=== PATIENT | male | born 1960 | race Caucasian/White ===

== ENCOUNTER → 2016-10-24 | Outpatient (CLI) | payer OTHER ==
--- NOTE | 2016-10-25 15:44 | EST ---
Referral Reason:R07.9 chest pain MEASUREMENTS -------- HEIGHT: 185.4 cm WEIGHT: 108.9 kg BP: 89/52 FINDINGS -------- Utilizing the standard Ferdinand protocol the patient was exercised for 11 minutes, 0 seconds, achieving a maximum heart rate of 145 , which is 138 % of predicted maximal heart rate. There was physiologic heart rate and blood pressure response to exercise. Max Heart Rate: 145 % of Max Predicted Heart Rate: 89 Rest Heart Rate: 65 Rest BP: 89/52 Max BP: 158/68 Mets Achieved: 12.1 The test was stopped because the target heart rate was achieved. This level of exercise represents a fair exercise tolerance for age. Sinus rhythm. In response to stress, the ECG showed no ST-T wave changes (see exercise report for details). LV size, wall thickness and systolic function are normal, with an EF of 60%. Echo images were acquired at peak stress which demonstrated appropriate augmentation of all left ventricular segments with slight decrease in cavity size. CONCLUSIONS -------- 1. This level of exercise represents a fair exercise tolerance for age. 2. Sinus rhythm. 3. In response to stress, the ECG showed no ST-T wave changes (see exercise report for details). 4. LV size, wall thickness and systolic function are normal, with an EF of 60%. 5. Echo images were acquired at peak stress which demonstrated appropriate augmentation of all left ventricular segments with slight decrease in cavity size. 6. No 2D echocardiographic evidence of inducible ischemia to achieved workload. RECEIVING ROOM CLERK: Rah Crespo RDCS MTDNirmal
== END ==
LOC: RADNMMAIN 09:50
PROVIDERS: ATTEND Family Medicine
DX: R07.9 Chest pain, unspecified (principal)
CPT/HCPCS: 93350; 93017; Q9957

== ENCOUNTER 2019-10-07 18:02 | Observation (INO) | payer OTHER ==
--- NOTE | 2019-10-07 19:31 | XR ---
EXAMINATION TYPE: XR chest 2V DATE OF EXAM: 10/07/2019 COMPARISON: NONE HISTORY: Short of breath TECHNIQUE: 2 views FINDINGS: Heart and mediastinum are normal. Lungs are clear. Diaphragm is normal. Bony thorax is inta ct. There is no pleural effusion. IMPRESSION: No active cardiopulmonary disease. Normal heart.
[2019-10-07 20:02] LABS: Basophils # (A) 0.1 k/uL (0-0.2); Basophils % (A) 1 %; Eosinophils # (A) 0.2 k/uL (0-0.7); Eosinophils % (A) 1 %; HCT 46.5 % (39.0-53.0); HGB 15.2 gm/dL (13.0-17.5); Lymphocytes # (A) 1.2 k/uL (1.0-4.8); Lymphocytes % (A) 10 %; MCH 30.8 pg (25.0-35.0); MCHC 32.7 g/dL (31.0-37.0); MCV 94.4 fL (80.0-100.0); Monocytes # (A) 0.6 k/uL (0-1.0); Monocytes % (A) 5 %; Neutrophils # (A) 9.5 k/uL (1.3-7.7); Neutrophils % (A) 82 %; Platelet Count 215 k/uL (150-450); RBC 4.92 m/uL (4.30-5.90); RDW 12.4 % (11.5-15.5); WBC 11.6 k/uL (3.8-10.6)
[2019-10-07 20:17] LABS: Albumin 4.5 g/dL (3.5-5.0); Calcium 9.3 mg/dL (8.4-10.2); Magnesium 2.6 mg/dL (1.6-2.3); Potassium 4.7 mmol/L (3.5-5.1); Total Bilirubin 0.8 mg/dL (0.2-1.3); Total Protein 7.4 g/dL (6.3-8.2)
[2019-10-07 20:18] LABS: Partial Thromboplastin Time 22.7 sec (22.0-30.0)
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
[2019-10-07] MEDS ORDERED: ASPIRIN 325 MG TAB PO STA (20:43)
[2019-10-08] MEDS ORDERED: HEPARIN SODIUM,PORCINE 5,000 UNIT/ML 1 ML VIAL IV ONE (00:31)
[2019-10-08] MEDS ORDERED: HEPARIN SODIUM,PORCINE 5,000 UNIT/ML 1 ML VIAL IV PRN (00:31)
[2019-10-08] MEDS ORDERED: NALOXONE 0.4 MG/ML 1 ML VIAL IV PRN (00:33)
[2019-10-08] MEDS ORDERED: HEPARIN SOD,PORK IN 0.45% NACL 25,000 UNIT in 0.45% NACL 1 250ML.BAG IV SCH (00:45)
--- NOTE | 2019-10-08 10:31 | ECHOF ---
Referral Reason:assess lvf MEASUREMENTS -------- HEIGHT: 180.3 cm WEIGHT: 111.1 kg BP: RVIDd: 2.8 cm (< 3.3) IVSd: 1.2 cm (0.6 - 1.1) LVIDd: 4.7 cm (3.9 - 5.3) LVPWd: 1.1 cm (0.6 - 1.1) IVSs: 1.9 cm LVIDs: 2.9 cm LVPWs: 1.5 cm Ao Diam: 3.3 cm (2.0 - 3.7) AV Cusp: 2.4 cm (1.5 - 2.6) LA Diam: 3.0 cm (2.7 - 3.8) MV EXCURSION: 24.505 mm (> 18.000) MV EF SLOPE: 151 mm/s (70 - 150) EPSS: 1.1 cm MV E Mahesh: 0.67 m/s MV DecT: 245 ms MV A Mahesh: 0.74 m/s MV E/A Ratio: 0.89 RAP: 5.00 mmHg RVSP: 31.44 mmHg FINDINGS -------- Sinus rhythm. This was a technically difficult study with suboptimal views. The left ventricular size is normal. There is mild concentric left ventricular hypertrophy. Overa ll left ventricular systolic function is normal with, an EF between 55 - 60 %. The right ventricle is normal in size. The left atrial size is normal. The right atrial size is normal. 5.0mg OF Lumason UTLIZED: 2 OR MORE WALL SEGMENTS NOT VISUALIZED. There is mild aortic valve sclerosis. The mitral valve is normal. There is trace mitral regurgitation. The tricuspid valve appears structurally normal. Trace tricuspid regurgitation present. Right tereza tricular systolic pressure is normal at < 35 mmHg. There is no pulmonic regurgitation present. The aortic root size is normal. IVC Not well visulized. There is no pericardial effusion. CONCLUSIONS -------- 1. This was a technically difficult study with suboptimal views. 2. There is mild concentric left ventricular hypertrophy. 3. Overall left ventricular systolic function is normal with, an EF between 55 - 60 %. 4. The left atrial size is normal. 5. 5.0mg OF Lumason UTLIZED: 2 OR MORE WALL SEGMENTS NOT VISUALIZED. 6. There is mild aortic valve sclerosis. 7. There is trace mitral regurgitation. 8. Trace tricuspid regurgitation present. 9. There is no pulmonic regurgitation present. ENTRY LEVEL MARKETING ASSISTANT: Inez Rivera RDCS
[2019-10-08] MEDS ORDERED: NITROGLYCERIN SL TABS 0.4 MG TAB SUBLINGUAL PRN (12:35)
[2019-10-08] MEDS ORDERED: ALPRAZolam 0.25 MG TAB PO PRN (12:35)
[2019-10-08] MEDS ORDERED: SODIUM CHLORIDE 0.9% 1,000 ML in EMPTY BAG 1 BAG IV ONE ×2 (12:35→12:45)
[2019-10-08] MEDS ORDERED: ASPIRIN 325 MG TAB PO STA (12:35)
[2019-10-08] MEDS ORDERED: ALPRAZolam 0.5 MG TAB PO PRN (12:35)
[2019-10-08] MEDS ORDERED: ATORVASTATIN 80 MG TAB PO STA (12:35)
[2019-10-08] MEDS ORDERED: LIDOCAINE 1% INJ 10MG/ML (20 ML MDV) ONE (12:39)
[2019-10-08] MEDS ORDERED: VERAPAMIL 2.5 MG/ML 2 ML AMP ONE (12:39)
[2019-10-08] MEDS ORDERED: fentaNYL (PF) 50 MCG/ML 2 ML AMP ONE (12:39)
[2019-10-08] MEDS ORDERED: SODIUM CHLORIDE 0.9% 1,000 ML IV ONE (12:50)
[2019-10-08] MEDS ORDERED: MIDAZOLAM 2 MG/2 ML VIAL IV ONE (12:58)
[2019-10-08] MEDS ORDERED: fentaNYL (PF) 50 MCG/ML 2 ML AMP IV ONE (12:58)
[2019-10-08] MEDS ORDERED: LIDOCAINE 1% INJ 10MG/ML (20 ML MDV) SQ ONE (13:00)
[2019-10-08] MEDS: VERAPAMIL SYRINGE (5 MG/10 ML) INTRAARTER ONE ×2 (13:03→13:26)
[2019-10-08] MEDS ORDERED: HEPARIN SODIUM 1,000 UN/ML (10ML VL) IV ONE (13:04)
[2019-10-08] MEDS ORDERED: IOPAMIDOL-370 100ML BTL INJ ONE (13:25)
[2019-10-08] MEDS ORDERED: RX INFO: IV CONTRAST WAS GIVEN 1 EACH MISC MISCELLANE PRN (13:32)
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
[2019-10-08] MEDS ORDERED: SODIUM CHLORIDE 0.9% 1,000 ML IV SCH (13:45)
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
[2019-10-09 09:39] VITALS: BP 127/75; PULSE 77; RESP 18; TEMP 98.1
== END 2019-10-08 18:38 | disposition home or self-care (01) ==
LOC: EC 18:02 → 3SCARD 10-08 00:34 → INTOOBSV 10-08 00:34 → 3SCARD 10-08 02:56 → UNDODISIN 10-08 18:38
PROVIDERS: ADMIT Family Medicine; ATTEND Family Medicine
DX: R07.89 Other chest pain (principal); R79.89 Other specified abnormal findings of blood chemistry; E78.5 Hyperlipidemia, unspecified; Z85.828 Personal history of other malignant neoplasm of skin; Z98.890 Other specified postprocedural states; Z87.891 Personal history of nicotine dependence; Z82.49 Family history of ischemic heart disease and other diseases of the circulatory system; Z80.42 Family history of malignant neoplasm of prostate; Z80.3 Family history of malignant neoplasm of breast; Z90.89 Acquired absence of other organs
CPT/HCPCS: 96366 ×2; 93005 ×2; 96376; 96365; 99285; 36415; 93306; 93458; 80053; 83605; 83735; 84484 ×2; 85025; 85610; 85730; 71046; G0378; C1769 ×2; C1894; U0003; J2250; J1644 ×3; J2001; J3010; Q9967

== ENCOUNTER 2020-05-14 06:45 | Emergency (ER) | payer OTHER ==
[2020-05-14 06:54] VITALS: BP 130/76; PULSE 80; RESP 22; TEMP 98.6
[2020-05-14] MEDS ORDERED: LIDOCAINE 1% INJ 10MG/ML (20 ML MDV) SQ ONE (07:00)
[2020-05-14] MEDS ORDERED: BACITRACIN OINT 1 EACH PACKET TOPICAL ONE (07:00)
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
== END 2020-05-14 07:37 | disposition home or self-care (01) ==
LOC: EC 06:45
DX: S61.210A Laceration without foreign body of right index finger without damage to nail, initial encounter (principal); Z85.828 Personal history of other malignant neoplasm of skin; Z90.89 Acquired absence of other organs; Z90.49 Acquired absence of other specified parts of digestive tract; Z80.3 Family history of malignant neoplasm of breast; Z80.42 Family history of malignant neoplasm of prostate; X18.XXXA Contact with other hot metals, initial encounter; Y93.89 Activity, other specified; Y92.69 Other specified industrial and construction area as the place of occurrence of the external cause; Y99.0 Civilian activity done for income or pay
CPT/HCPCS: 99282; 12001; J2001

== ENCOUNTER → 2021-06-02 | Outpatient (CLI) | payer OTHER ==
--- NOTE | 2021-06-02 18:18 | CT ---
EXAMINATION TYPE: CT urogram wo/w con DATE OF EXAM: 06/02/2021 INDICATION: hematuria CT DLP: 3614.9 mGy.cm Automated Exposure Control for Dose Reduction was Utilized. TECHNIQUE AND CONTRAST: CT scan of the abdomen and pelvis is performed without and with IV Contrast, as per CT urogram protoc ol. The patient injected with 100 mL of Isovue 300. 3-D reconstruction images were performed and revi ewed. COMPARISON: None available FINDINGS: No radiodense urinary calculi. No hydroureter or hydronephrosis. Left upper pole simple renal cyst wi thout suspicious feature measuring up to 7.2 cm. 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 No definite renal lesion identified otherwise. Minimal wall thickening of the distal ureters and the posterior aspect of the urinary bladder, nonspe cific. Recommend correlation with urinalysis results including cytology. Prostatic concretion. Slight ly enlarged prostate, please correlate with PSA level. Unremarkable seminal vesicles. No definite hepatic focal lesion. Unremarkable gallbladder. Enlarged spleen measuring 14.2 cm without definite lesion. Fatty infiltration of the pancreas. Unremarkable adrenals, abdominal aorta and IVC. Unremarkable nondistended stomach, duodenum and small bowel. Fecal loading of the rectum. No gross c olonic mass. Bilateral fat-containing inguinal hernias, slightly larger on the left side. Small fat-containing umb ilical hernia. No suspicious lymphadenopathy or sizable ascites. Bilateral basal pulmonary posterior reticulations and dependent densities, nonspecific. Bilateral L5 pars break with grade 1 anterolisthe sis of L5 over S1. No aggressive bone lesion. IMPRESSION: No radiodense urinary calculi. No hydroureter or hydronephrosis. No suspicious renal or ureteric lesi on. Minimal wall thickening of the distal ureters and the posterior aspect of the urinary bladder, no nspecific. Recommend correlation with urinalysis results including cytology. Further cystoscopy can b e considered. Prominent prostate, please correlate with PSA level. Other incidental findings as descr ibed above.
== END | disposition home or self-care (01) ==
LOC: RADCTMAIN 13:37
PROVIDERS: ATTEND Urology
DX: N28.89 Other specified disorders of kidney and ureter (principal)
CPT/HCPCS: 74178; 74400; Q9967